=== PATIENT | male | born 1970 | race Caucasian/White ===

== ENCOUNTER 2021-08-03 22:06 | Inpatient (IN) | payer MEDICARE, OTHER ==
[~2021-08-03] VITALS: Ht 185.4 cm; Wt 63.5 kg
[2021-08-03] MEDS ORDERED: CEFTRIAXONE 1 GM in SODIUM CHLORIDE 0.9% 50ML 50 ML IV ONE (22:30)
[2021-08-03] MEDS ORDERED: SODIUM CHLORIDE 0.9% 1000ML 2,400 ML IV ONE (22:30)
[2021-08-03 23:15] LABS: BASOPHILS # (AUTO) 0.1 (0.0-0.1); BASOPHILS % 0.2 % (0.0-1.0); HEMATOCRIT 36.9 % (38.2-49.6); HEMOGLOBIN 11.8 g/dL (14.0-18.0); LYMPHOCYTES # (AUTO) 0.4 (1.0-3.2); LYMPHOCYTES % 1.7 % (18.0-39.1); MEAN CORPUSCULAR HEMOGLOBIN 28.8 pg (28-32); MONOCYTES # (AUTO) 2.4 (0.2-0.8); MONOCYTES % 10.4 % (4.4-11.3); NEUTROPHILS % 86.8 % (38.7-80.0); PLATELET COUNT 268 x10e3/uL (140-360); RED CELL DISTRIBUTION WIDTH 13.3 % (11.7-14.4)
[2021-08-03 23:25] LABS: INR 0.99; PARTIAL THROMBOPLASTIN TIME 30.4 seconds (23.8-35.5); PROTHROMBIN TIME 13.8 seconds (11.9-14.5)
[2021-08-03 23:32] LABS: LYMPHOCYTES % (MANUAL) 6 % (19-48); MONOCYTES % (MANUAL) 4 % (3.4-9.0); NEUTROPHILS % (MANUAL) 90 % (40-74)
[2021-08-03 23:33] LABS: ANISOCYTOSIS SLIGHT; PLATELET ESTIMATE ADEQUATE; PLATELET MORPHOLOGY COMMENT NORMAL
[2021-08-03 23:34] LABS: ALBUMIN 3.1 g/dL (3.5-5.0); ALBUMIN/GLOBULIN RATIO 0.8 (0.8-2.0); ANION GAP 22.1 mmol/L (8-16); CALCIUM 9.4 mg/dL (8.4-10.2); CREATININE, SERUM 2.42 mg/dL (0.72-1.25); POLYCHROMASIA FEW; TEAR DROP CELLS FEW
[2021-08-03 23:35] LABS: POTASSIUM 5.1 mmol/L (3.5-5.1)
[2021-08-04] VITALS (10 sets, daily range): BP systolic 78–115; BP diastolic 60–68
[2021-08-04 02:48] LABS: CLARITY,URINE TURBID (CLEAR); COLOR,URINE YELLOW (YELLOW); LEUKOCYTE ESTERASE ,URINE LARGE (NEGATIVE); NITRITE,URINE NEGATIVE (NEGATIVE); PROTEIN,URINE DIPSTICK 2+ (NEGATIVE)
[2021-08-04 02:49] LABS: KETONES,URINE NEGATIVE (NEGATIVE); URINE UROBILINOGEN 0.2 mg/dL (0.2 - 1)
[2021-08-04 02:56] LABS: BACTERIA,URINE MANY /HPF; EPITHELIAL CELLS,URINE FEW /LPF; WBC,URINE (MAN) >50 /HPF (0-5)
[2021-08-04 07:14] LABS: BASOPHILS # (AUTO) 0.1 (0.0-0.1); BASOPHILS % 0.3 % (0.0-1.0); HEMATOCRIT 29.4 % (38.2-49.6); HEMOGLOBIN 9.6 g/dL (14.0-18.0); LYMPHOCYTES # (AUTO) 0.7 (1.0-3.2); LYMPHOCYTES % 3.1 % (18.0-39.1); MEAN CORPUSCULAR HEMOGLOBIN 29.4 pg (28-32); MEAN CORPUSCULAR HGB CONC 32.7 g/dL (31-35); MEAN CORPUSCULAR VOLUME 89.9 fL (81-99); MONOCYTES # (AUTO) 2.1 (0.2-0.8); MONOCYTES % 9.6 % (4.4-11.3); NEUTROPHILS % 86.5 % (38.7-80.0); PLATELET COUNT 193 x10e3/uL (140-360); RED BLOOD COUNT 3.27 x10e6/uL (4.3-5.7); RED CELL DISTRIBUTION WIDTH 13.2 % (11.7-14.4)
[2021-08-04 07:40] LABS: ALBUMIN 2.6 g/dL (3.5-5.0); ALBUMIN/GLOBULIN RATIO 0.8 (0.8-2.0); ANION GAP 12.9 mmol/L (8-16); CALCIUM 8.4 mg/dL (8.4-10.2); CREATININE, SERUM 1.3 mg/dL (0.72-1.25); MAGNESIUM 1.6 MG/DL (1.3-2.1); POTASSIUM 3.9 mmol/L (3.5-5.1)
[2021-08-04 08:01] LABS: FERRITIN 1017.94 ng/mL (21.81-274.66)
[2021-08-04] MEDS ORDERED: HYDROCORTISO453.6 GM (08:08)
[2021-08-04] MEDS ORDERED: HYDROXYZINE HCL25 MG PO (08:08)
[2021-08-04] MEDS ORDERED: CIPRO500 MG PO (08:08)
[2021-08-04] MEDS ORDERED: VITAMIN C500 MG PO (08:08)
[2021-08-04] MEDS ORDERED: CHOLECALCIFEROL1 GM PO (08:08)
[2021-08-04] MEDS ORDERED: ATROPINE SULFATE2 ML PO (08:08)
[2021-08-04] MEDS ORDERED: MORPHINE SU2 MG/1 ML PO (08:08)
[2021-08-04] MEDS ORDERED: ONDANSETRON HCL4 MG PO (08:08)
[2021-08-04] MEDS ORDERED: FLOMAX0.4 MG PO (08:08)
[2021-08-04] MEDS ORDERED: BISACODYL5 MG PR (08:08)
[2021-08-04] MEDS ORDERED: LANTUS 3ML100 UNITS/ SQ (08:08)
[2021-08-04] MEDS ORDERED: TYLENOL EXTRA500 MG PO (08:08)
[2021-08-04] MEDS ORDERED: FINASTERIDE5 MG PO (08:08)
[2021-08-04] MEDS ORDERED: morphine (08:38)
[2021-08-04] MEDS ORDERED: DEXTROSE 50% SYRINGE 50 ML IV PRN (10:45)
[2021-08-04] MEDS ORDERED: ONDANSETRON HCL INJ 2MG/ML 2ML 2 MG/ML VIAL IV PRN (10:45)
[2021-08-04 10:54] LABS: BAND NEUTROPHILS % (MANUAL) 6 %; LYMPHOCYTES % (MANUAL) 5 % (19-48); MONOCYTES % (MANUAL) 8 % (3.4-9.0); NEUTROPHILS % (MANUAL) 81 % (40-74); PLATELET ESTIMATE ADEQUATE; PLATELET MORPHOLOGY COMMENT NORMAL; RBC MORPHOLOGY COMMENT NORMAL
[2021-08-04] MEDS: INSULIN LISPRO 100 UNIT/1 ML 3ML VIAL SQ SCH ×3 (11:30→21:29)
[2021-08-04] MEDS: FOLIC ACID 1 MG TAB PO SCH (11:57)
[2021-08-04] MEDS: SODIUM CHLORIDE 0.9% 1000ML 1,000 ML IV SCH ×2 (11:57→21:25)
[2021-08-04] MEDS: FINASTERIDE 5 MG TAB PO SCH (11:58)
[2021-08-04] MEDS: ASCORBIC ACID 500 MG TAB PO SCH (11:58)
[2021-08-04] MEDS: HYDROXYZINE HCL 25 MG TAB PO SCH ×2 (11:58→17:38)
[2021-08-04] MEDS: Morphine 4mg Syringe 4 MG/ML INJ IV PRN ×3 (12:42→21:49)
[2021-08-04] MEDS: MEROPENEM 1 GM in SODIUM CHLORIDE 0.9% 100 ML IV SCH ×2 (13:46→21:24)
[2021-08-04] MEDS: TAMSULOSIN HCL 0.4 MG CAP PO SCH (21:25)
[2021-08-04] MEDS: INSULIN GLARGINE 100 UNITS/ML VIAL SQ SCH (21:30)
[2021-08-05] VITALS (7 sets, daily range): BP systolic 108–145; BP diastolic 54–78
[2021-08-05] MEDS: HYDROXYZINE HCL 25 MG TAB PO SCH ×5 (00:52→23:43)
[2021-08-05] MEDS: MEROPENEM 1 GM in SODIUM CHLORIDE 0.9% 100 ML IV SCH ×3 (05:53→23:14)
[2021-08-05 06:42] LABS: BASOPHILS # (AUTO) 0.1 (0.0-0.1); BASOPHILS % 0.4 % (0.0-1.0); EOSINOPHILS # (AUTO) 0.1 (0.0-0.4); EOSINOPHILS % 0.4 % (0.0-6.0); HEMATOCRIT 28.3 % (38.2-49.6); HEMOGLOBIN 9.1 g/dL (14.0-18.0); LYMPHOCYTES # (AUTO) 0.6 (1.0-3.2); LYMPHOCYTES % 4.1 % (18.0-39.1); MEAN CORPUSCULAR HEMOGLOBIN 28.9 pg (28-32); MEAN CORPUSCULAR HGB CONC 32.2 g/dL (31-35); MEAN CORPUSCULAR VOLUME 89.8 fL (81-99); MONOCYTES # (AUTO) 1.6 (0.2-0.8); MONOCYTES % 11.2 % (4.4-11.3); NEUTROPHILS # (AUTO) 11.7 (2.1-6.9); PLATELET COUNT 179 x10e3/uL (140-360); RED BLOOD COUNT 3.15 x10e6/uL (4.3-5.7); RED CELL DISTRIBUTION WIDTH 13.3 % (11.7-14.4)
[2021-08-05 07:01] LABS: ALBUMIN 2.5 g/dL (3.5-5.0); ALBUMIN/GLOBULIN RATIO 0.8 (0.8-2.0); ANION GAP 11.5 mmol/L (8-16); CALCIUM 8.9 mg/dL (8.4-10.2); CREATININE, SERUM 0.61 mg/dL (0.72-1.25); POTASSIUM 3.5 mmol/L (3.5-5.1)
[2021-08-05] MEDS: INSULIN LISPRO 100 UNIT/1 ML 3ML VIAL SQ SCH ×4 (08:30→20:58)
[2021-08-05] MEDS: INSULIN GLARGINE 100 UNITS/ML VIAL SQ SCH ×2 (10:00→21:01)
[2021-08-05] MEDS: SODIUM CHLORIDE 0.9% 1000ML 1,000 ML IV SCH ×2 (10:21→17:26)
[2021-08-05] MEDS: FINASTERIDE 5 MG TAB PO SCH (10:23)
[2021-08-05] MEDS: FOLIC ACID 1 MG TAB PO SCH (10:23)
[2021-08-05] MEDS: ASCORBIC ACID 500 MG TAB PO SCH (10:23)
[2021-08-05] MEDS ORDERED: MAGNESIUM OXIDE 400 MG TAB PO ONE (12:30)
[2021-08-05] MEDS ORDERED: POTASSIUM CHLORIDE 20 MEQ TAB CR PO ONE (12:30)
[2021-08-05] MEDS: Vancomycin IV 1 GM in SODIUM CHLORIDE 0.9% 250ML 250 ML IV SCH ×2 (14:20→20:45)
[2021-08-05] MEDS: BALSAM PERU/CASTOR OIL 60 GM OINT...G. TP SCH (17:26)
[2021-08-05] MEDS: Morphine 4mg Syringe 4 MG/ML INJ IV PRN ×2 (17:26→23:43)
[2021-08-05] MEDS: TAMSULOSIN HCL 0.4 MG CAP PO SCH (20:53)
[2021-08-06] VITALS (7 sets, daily range): BP systolic 104–132; BP diastolic 72–82
[2021-08-06] MEDS: SODIUM CHLORIDE 0.9% 1000ML 1,000 ML IV SCH ×3 (04:54→23:28)
[2021-08-06] MEDS: HYDROXYZINE HCL 25 MG TAB PO SCH ×3 (05:31→16:56)
[2021-08-06] MEDS: MEROPENEM 1 GM in SODIUM CHLORIDE 0.9% 100 ML IV SCH ×3 (05:31→20:28)
[2021-08-06] MEDS: Morphine 4mg Syringe 4 MG/ML INJ IV PRN ×4 (05:32→21:24)
[2021-08-06 07:20] LABS: BASOPHILS % 0.4 % (0.0-1.0); EOSINOPHILS # (AUTO) 0.1 (0.0-0.4); HEMATOCRIT 26.7 % (38.2-49.6); HEMOGLOBIN 8.6 g/dL (14.0-18.0); LYMPHOCYTES # (AUTO) 0.7 (1.0-3.2); LYMPHOCYTES % 9.3 % (18.0-39.1); MEAN CORPUSCULAR HEMOGLOBIN 29.2 pg (28-32); MEAN CORPUSCULAR HGB CONC 32.2 g/dL (31-35); MEAN CORPUSCULAR VOLUME 90.5 fL (81-99); MONOCYTES % 12.1 % (4.4-11.3); NEUTROPHILS % 75.8 % (38.7-80.0); PLATELET COUNT 167 x10e3/uL (140-360); RED BLOOD COUNT 2.95 x10e6/uL (4.3-5.7); RED CELL DISTRIBUTION WIDTH 13.2 % (11.7-14.4)
[2021-08-06] MEDS: INSULIN LISPRO 100 UNIT/1 ML 3ML VIAL SQ SCH ×4 (07:30→20:21)
[2021-08-06 08:01] LABS: ALBUMIN 2.2 g/dL (3.5-5.0); ALBUMIN/GLOBULIN RATIO 0.7 (0.8-2.0); ANION GAP 11.1 mmol/L (8-16); CALCIUM 8.4 mg/dL (8.4-10.2); CREATININE, SERUM 0.52 mg/dL (0.72-1.25); POTASSIUM 3.1 mmol/L (3.5-5.1)
[2021-08-06] MEDS: INSULIN GLARGINE 100 UNITS/ML VIAL SQ SCH ×2 (09:30→20:21)
[2021-08-06] MEDS: FINASTERIDE 5 MG TAB PO SCH (09:32)
[2021-08-06] MEDS: Vancomycin IV 1 GM in SODIUM CHLORIDE 0.9% 250ML 250 ML IV SCH ×2 (09:32→21:52)
[2021-08-06] MEDS: FOLIC ACID 1 MG TAB PO SCH (09:32)
[2021-08-06] MEDS: ASCORBIC ACID 500 MG TAB PO SCH (09:32)
[2021-08-06] MEDS: BALSAM PERU/CASTOR OIL 60 GM OINT...G. TP SCH (09:37)
[2021-08-06] MEDS ORDERED: POTASSIUM CHLORIDE 10MEQ EA PO NR (15:30)
[2021-08-06] MEDS ORDERED: POTASSIUM CHLORIDE 20MEQ/100ML 100 ML IV ONE (15:30)
[2021-08-06] MEDS: TAMSULOSIN HCL 0.4 MG CAP PO SCH (20:20)
[2021-08-06] MEDS ORDERED: SODIUM CHLORIDE 0.9% 250ML 250 ML ONE (21:33)
[2021-08-07] VITALS (10 sets, daily range): BP systolic 104–145; BP diastolic 59–95
[2021-08-07] MEDS: HYDROXYZINE HCL 25 MG TAB PO SCH ×5 (00:27→23:44)
[2021-08-07] MEDS: MEROPENEM 1 GM in SODIUM CHLORIDE 0.9% 100 ML IV SCH ×3 (06:00→20:28)
[2021-08-07 07:27] LABS: BASOPHILS % 0.5 % (0.0-1.0); EOSINOPHILS # (AUTO) 0.1 (0.0-0.4); EOSINOPHILS % 1.8 % (0.0-6.0); HEMOGLOBIN 8.7 g/dL (14.0-18.0); LYMPHOCYTES % 14.5 % (18.0-39.1); MEAN CORPUSCULAR HEMOGLOBIN 28.8 pg (28-32); MEAN CORPUSCULAR HGB CONC 32.2 g/dL (31-35); MEAN CORPUSCULAR VOLUME 89.4 fL (81-99); MONOCYTES # (AUTO) 1.2 (0.2-0.8); MONOCYTES % 17.3 % (4.4-11.3); NEUTROPHILS # (AUTO) 4.3 (2.1-6.9); NEUTROPHILS % 64.2 % (38.7-80.0); PLATELET COUNT 177 x10e3/uL (140-360); RED BLOOD COUNT 3.02 x10e6/uL (4.3-5.7); RED CELL DISTRIBUTION WIDTH 13.2 % (11.7-14.4)
[2021-08-07] MEDS: INSULIN LISPRO 100 UNIT/1 ML 3ML VIAL SQ SCH ×4 (07:30→20:27)
[2021-08-07 07:34] LABS: ANION GAP 9.1 mmol/L (8-16); CALCIUM 7.9 mg/dL (8.4-10.2); CREATININE, SERUM 0.46 mg/dL (0.72-1.25); POTASSIUM 3.1 mmol/L (3.5-5.1)
[2021-08-07] MEDS: Vancomycin IV 1 GM in SODIUM CHLORIDE 0.9% 250ML 250 ML IV SCH ×2 (08:57→20:00)
[2021-08-07] MEDS: FINASTERIDE 5 MG TAB PO SCH (08:57)
[2021-08-07] MEDS: FOLIC ACID 1 MG TAB PO SCH (08:57)
[2021-08-07] MEDS: ASCORBIC ACID 500 MG TAB PO SCH (08:59)
[2021-08-07] MEDS: Morphine 4mg Syringe 4 MG/ML INJ IV PRN ×3 (09:00→20:00)
[2021-08-07] MEDS: BALSAM PERU/CASTOR OIL 60 GM OINT...G. TP SCH (09:00)
[2021-08-07] MEDS: SODIUM CHLORIDE 0.9% 1000ML 1,000 ML IV SCH ×2 (09:04→19:33)
[2021-08-07] MEDS: INSULIN GLARGINE 100 UNITS/ML VIAL SQ SCH ×2 (09:20→20:27)
[2021-08-07] MEDS ORDERED: POTASSIUM CHLORIDE 20 MEQ TAB CR PO NR (12:15)
[2021-08-07] MEDS ORDERED: POTASSIUM CHLORIDE 20MEQ/100ML 100 ML IV ONE (12:15)
[2021-08-07] MEDS: TAMSULOSIN HCL 0.4 MG CAP PO SCH (20:00)
[2021-08-08] VITALS (9 sets, daily range): BP systolic 115–141; BP diastolic 66–90
[2021-08-08] MEDS: Morphine 4mg Syringe 4 MG/ML INJ IV PRN ×2 (01:46→21:42)
[2021-08-08] MEDS: MEROPENEM 1 GM in SODIUM CHLORIDE 0.9% 100 ML IV SCH ×3 (05:30→21:35)
[2021-08-08] MEDS: SODIUM CHLORIDE 0.9% 1000ML 1,000 ML IV SCH ×2 (05:30→15:45)
[2021-08-08] MEDS: HYDROXYZINE HCL 25 MG TAB PO SCH ×3 (05:30→17:15)
[2021-08-08] MEDS: INSULIN LISPRO 100 UNIT/1 ML 3ML VIAL SQ SCH ×4 (07:30→21:00)
[2021-08-08] MEDS: INSULIN GLARGINE 100 UNITS/ML VIAL SQ SCH ×2 (09:00→21:00)
[2021-08-08 09:45] LABS: BASOPHILS % 0.6 % (0.0-1.0); EOSINOPHILS # (AUTO) 0.1 (0.0-0.4); HEMATOCRIT 30.2 % (38.2-49.6); HEMOGLOBIN 9.7 g/dL (14.0-18.0); LYMPHOCYTES % 13.5 % (18.0-39.1); MEAN CORPUSCULAR HEMOGLOBIN 28.4 pg (28-32); MEAN CORPUSCULAR HGB CONC 32.1 g/dL (31-35); MEAN CORPUSCULAR VOLUME 88.6 fL (81-99); MONOCYTES # (AUTO) 1.2 (0.2-0.8); MONOCYTES % 16.3 % (4.4-11.3); NEUTROPHILS # (AUTO) 4.7 (2.1-6.9); NEUTROPHILS % 65.9 % (38.7-80.0); PLATELET COUNT 204 x10e3/uL (140-360); RED BLOOD COUNT 3.41 x10e6/uL (4.3-5.7)
[2021-08-08 10:05] LABS: ALBUMIN 2.1 g/dL (3.5-5.0); ALBUMIN/GLOBULIN RATIO 0.6 (0.8-2.0); ANION GAP 10.5 mmol/L (8-16); CREATININE, SERUM 0.48 mg/dL (0.72-1.25); POTASSIUM 3.5 mmol/L (3.5-5.1)
[2021-08-08] MEDS: FOLIC ACID 1 MG TAB PO SCH (10:41)
[2021-08-08] MEDS: FINASTERIDE 5 MG TAB PO SCH (10:41)
[2021-08-08] MEDS: ASCORBIC ACID 500 MG TAB PO SCH (10:41)
[2021-08-08] MEDS: BALSAM PERU/CASTOR OIL 60 GM OINT...G. TP SCH (10:42)
[2021-08-08] MEDS: Vancomycin IV 1 GM in SODIUM CHLORIDE 0.9% 250ML 250 ML IV SCH ×2 (10:56→21:30)
[2021-08-08] MEDS: TAMSULOSIN HCL 0.4 MG CAP PO SCH (21:30)
[2021-08-09] MEDS: HYDROXYZINE HCL 25 MG TAB PO SCH ×2 (00:16→05:24)
[2021-08-09] MEDS: SODIUM CHLORIDE 0.9% 1000ML 1,000 ML IV SCH (00:24)
[2021-08-09 04:12] VITALS: BP 120/88
[2021-08-09] MEDS: MEROPENEM 1 GM in SODIUM CHLORIDE 0.9% 100 ML IV SCH (05:23)
[2021-08-09] MEDS ORDERED: MEROPENEM 1 GM VIAL ONE (05:32)
[2021-08-09] MEDS: INSULIN LISPRO 100 UNIT/1 ML 3ML VIAL SQ SCH (07:30)
[2021-08-09 08:01] VITALS: BP 137/84
[2021-08-09 08:59] VITALS: BP 137/84
[2021-08-09] MEDS: INSULIN GLARGINE 100 UNITS/ML VIAL SQ SCH (09:00)
[2021-08-09] MEDS: FINASTERIDE 5 MG TAB PO SCH (09:22)
[2021-08-09] MEDS: BALSAM PERU/CASTOR OIL 60 GM OINT...G. TP SCH (09:22)
[2021-08-09] MEDS: FOLIC ACID 1 MG TAB PO SCH (09:22)
[2021-08-09] MEDS: ASCORBIC ACID 500 MG TAB PO SCH (09:22)
[2021-08-09] MEDS: Vancomycin IV 1 GM in SODIUM CHLORIDE 0.9% 250ML 250 ML IV SCH (09:23)
[2021-08-09 09:32] LABS: BASOPHILS % 0.6 % (0.0-1.0); EOSINOPHILS # (AUTO) 0.1 (0.0-0.4); EOSINOPHILS % 2.6 % (0.0-6.0); HEMATOCRIT 27.7 % (38.2-49.6); HEMOGLOBIN 8.7 g/dL (14.0-18.0); LYMPHOCYTES # (AUTO) 1.1 (1.0-3.2); MEAN CORPUSCULAR HEMOGLOBIN 28.3 pg (28-32); MEAN CORPUSCULAR HGB CONC 31.4 g/dL (31-35); MEAN CORPUSCULAR VOLUME 90.2 fL (81-99); MONOCYTES # (AUTO) 0.9 (0.2-0.8); MONOCYTES % 16.8 % (4.4-11.3); NEUTROPHILS # (AUTO) 3.1 (2.1-6.9); NEUTROPHILS % 58.5 % (38.7-80.0); PLATELET COUNT 231 x10e3/uL (140-360); RED BLOOD COUNT 3.07 x10e6/uL (4.3-5.7)
[2021-08-09 10:30] LABS: ALBUMIN/GLOBULIN RATIO 0.7 (0.8-2.0); ANION GAP 9.5 mmol/L (8-16); CREATININE, SERUM 0.54 mg/dL (0.72-1.25); POTASSIUM 3.5 mmol/L (3.5-5.1)
[2021-08-09] MEDS ORDERED: ONDANSETRON HCL 4 MG ORAL DISINTEGRATING TAB PO PRN (12:15)
== END 2021-08-09 12:14 | DRG 698 ==
LOC: ER 22:30 → ERHOLD 08-04 00:27 → MED/SURG3 08-04 04:19
PROVIDERS: ADMIT Internal Medicine; ATTEND Internal Medicine
PROC: XW033N5 Introduction of Meropenem-vaborbactam Anti-infective into Peripheral Vein, Percutaneous Approach, New Technology Group 5 (ICD-10-PCS; principal; 2021-08-04)
DX: T83.518A Infection and inflammatory reaction due to other urinary catheter, initial encounter (principal); R65.20 Severe sepsis without septic shock; A41.51 Sepsis due to Escherichia coli [E. coli]; A41.02 Sepsis due to Methicillin resistant Staphylococcus aureus; A41.89 Other specified sepsis; G82.50 Quadriplegia, unspecified; N17.9 Acute kidney failure, unspecified; Z16.12 Extended spectrum beta lactamase (ESBL) resistance; C45.9 Mesothelioma, unspecified; Z74.01 Bed confinement status; E11.9 Type 2 diabetes mellitus without complications; S40.812A Abrasion of left upper arm, initial encounter; S40.811A Abrasion of right upper arm, initial encounter; G20 Parkinson's disease; Z88.0 Allergy status to penicillin; Z88.2 Allergy status to sulfonamides; Z88.7 Allergy status to serum and vaccine; Z66 Do not resuscitate; E87.6 Hypokalemia; Z20.822 Contact with and (suspected) exposure to COVID-19
CPT/HCPCS: 36415; 51700; 80048; 80053; 80202; 81001; 82607; 82728; 82746; 82948; 83540; 83605; 83735; 84466; 85025; 85610; 85730; 87086; 87186; 93005; 94799; 99251; 99284; J0696; J1815; J2185; J2270; J2405; J3370; J3410; J3480; J7030; J7050; U0002